=== PATIENT | female | born 1990 | race Caucasian/White ===

== ENCOUNTER 2019-12-04 11:07 | Observation (INO) | payer MEDICAID ==
[~2019-12-04 11:07] MED LIST: ALBUTEROL
[2019-12-04] MEDS ORDERED: PNV11TAB MT (11:47)
[2019-12-04] MEDS ORDERED: ASPI-986 MT (11:47)
[2019-12-04] MEDS ORDERED: FOLI-43 MT (11:49)
== END 2019-12-04 13:00 | disposition home or self-care (01) ==
LOC: 8 EST LDRP 11:07
PROVIDERS: ADMIT Obstetrics & Gynecology; ATTEND Obstetrics & Gynecology
DX: Z34.83 Encounter for supervision of other normal pregnancy, third trimester (principal); Z3A.33 33 weeks gestation of pregnancy
CPT/HCPCS: 99281; G0378